=== PATIENT | male | born 1940 | race African-American/Black ===

== ENCOUNTER 2022-04-13 15:58 | Emergency (ER) | payer MEDICARE, OTHER ==
[~2022-04-13 15:58] MED LIST: BETHANECHOL PO; FINA5TAB11 PO; TERA2CAP4 PO
[2022-04-13] MEDS ORDERED: LIDOCAINE HCL 1% 10 MG/ML 10ML VIAL ONE (16:42)
[2022-04-13] MEDS ORDERED: SODIUM BICARBONATE 4% (2.4MEQ) 5ML VIAL IV ONE (16:44)
== END 2022-04-13 18:41 | disposition left against medical advice (07) ==
LOC: ER 15:58
DX: Z43.6 Encounter for attention to other artificial openings of urinary tract (principal)
CPT/HCPCS: 76857; 76942; J3490; 99284

== ENCOUNTER 2022-04-14 10:23 | Emergency (ER) | payer OTHER ==
[~2022-04-14] VITALS: Ht 188 cm; Wt 86.0 kg
[2022-04-14 10:56] VITALS: BP 135/89
== END 2022-04-14 15:38 | disposition home or self-care (01) ==
LOC: ER 10:23
DX: R31.9 Hematuria, unspecified (principal); Z88.6 Allergy status to analgesic agent; Z91.041 Radiographic dye allergy status
CPT/HCPCS: 51702; 99284

== ENCOUNTER 2023-10-03 10:37 | Emergency (ER) | payer OTHER ==
[~2023-10-03] VITALS: Ht 175.3 cm; Wt 81.0 kg
[2023-10-03 10:40] VITALS: BP 110/78; RESP 20; TEMP 97.6; O2SAT 99
[2023-10-03 10:47] VITALS: PULSE 89
[2023-10-03 12:59] LABS: BASOPHILS % 0.2 % (0.0-2.0); EOSINOPHILS % 0.6 % (0.0-5.0); HEMATOCRIT. 40.9 % (42.0-52.0); HEMOGLOBIN. 13.5 g/dL (14.0-18.0); LYMPHOCYTES % 14.8 % (20.0-50.0); MEAN CORPUSCULAR HEMOGLOBIN 28.7 pg (28.0-32.0); MEAN CORPUSCULAR HGB CONC 32.9 g/dL (31.0-37.0); MEAN CORPUSCULAR VOLUME 87.3 fL (80.0-94.0); MEAN PLATELET VOLUME 8.4 fl (7.4-10.4); MONOCYTES % 9.6 % (2.0-8.0); NEUTROPHILS % 74.8 % (40.0-76.0); PLATELET 218 x1000/uL (130-400); RED BLOOD CELL COUNT 4.69 mill/uL (4.7-6.1); RED CELL DISTRIBUTION WIDTH 15.4 % (11.6-14.6); WHITE BLOOD COUNT 5.3 x1000/uL (4.5-11.0)
[2023-10-03 13:20] LABS: CLARITY URINE TURBID (CLEAR); COLOR URINE YELLOW (YELLOW); GLUCOSE URINE NEGATIVE (NEGATIVE); KETONES URINE NEGATIVE (NEGATIVE); LEUKOCYTE ESTERASE URINE 2+ (NEGATIVE); NITRITE URINE NEGATIVE (NEGATIVE); OCCULT BLOOD URINE TRACE (NEGATIVE); PROTEIN URINE NEGATIVE (NEGATIVE); SPECIFIC GRAVITY URINE 1.015 (1.005-1.030)
[2023-10-03] MEDS ORDERED: CEFP200T13 MT (14:00)
[2023-10-03 17:55] LABS: SQUAMOUS EPITHELIAL CELL URINE FEW /lpf (RARE/1+)
[2023-10-03 17:56] LABS: BACTERIA URINE 4+; RBC URINE 0-2 /hpf (0-2); WBC URINE 15-25 /hpf (0-2)
== END 2023-10-03 18:28 | disposition home or self-care (01) ==
LOC: ER 11:22
DX: N39.0 Urinary tract infection, site not specified (principal); I10 Essential (primary) hypertension; Z79.899 Other long term (current) drug therapy; Z88.2 Allergy status to sulfonamides
CPT/HCPCS: 36415; 81003; 85025; 99283

== ENCOUNTER 2023-10-26 05:49 | Emergency (ER) | payer OTHER ==
[~2023-10-26] VITALS: Ht 188 cm; Wt 89.0 kg
[~2023-10-26 05:49] MED LIST changes: +CEFP200T13 MT
[2023-10-26 06:03] VITALS: BP 138/105; PULSE 103; RESP 14; TEMP 97.8; O2SAT 98
[2023-10-26 07:36] LABS: CLARITY URINE CLOUDY (CLEAR); COLOR URINE YELLOW (YELLOW); GLUCOSE URINE NEGATIVE (NEGATIVE); KETONES URINE NEGATIVE (NEGATIVE); LEUKOCYTE ESTERASE URINE 2+ (NEGATIVE); NITRITE URINE NEGATIVE (NEGATIVE); OCCULT BLOOD URINE TRACE (NEGATIVE); PH URINE >=9.0 (4.5-8.0); PROTEIN URINE 1+ (NEGATIVE); SPECIFIC GRAVITY URINE 1.011 (1.005-1.030)
[2023-10-26 08:09] LABS: BACTERIA URINE 4+; SQUAMOUS EPITHELIAL CELL URINE NONE SEEN /lpf (RARE/1+); WBC URINE 0-2 /hpf (0-2); YEAST URINE NONE SEEN
[2023-10-26 08:32] LABS: TRIPLE PHOSPHATE CRYSTAL URINE 1+ /lpf
[2023-10-26] MEDS ORDERED: CEPH500C2 MT (08:50)
== END 2023-10-26 11:20 | disposition home or self-care (01) ==
LOC: ER 06:35
DX: T83.9XXA Unspecified complication of genitourinary prosthetic device, implant and graft, initial encounter (principal); I10 Essential (primary) hypertension; Z88.2 Allergy status to sulfonamides; Z91.041 Radiographic dye allergy status; Z98.890 Other specified postprocedural states
CPT/HCPCS: 51702; 81003; 99284